=== PATIENT | female | born 1980 | race Caucasian/White ===

== ENCOUNTER 2016-03-29 14:22 | Emergency (ER) | payer OTHER ==
[~2016-03-29] VITALS: Ht 165.1 cm; Wt 103.1 kg
[~2016-03-29 14:22] MED LIST: AEROECLIPSE1 EACH MC; ALBUTEROL SULF8.5 GM IH; ALBUTEROL17 GM IH; ALBUTEROL2.5 MG/3 M; ALBUTEROL2.5 MG/3 M IH; AMOXICILLIN500 MG PO; AUGMENTIN875 MG PO; BACTRIM,SEPT1 TABLET PO; BUSPAR5 MG PO; CLONIDINE HCL0.1 MG PO; CYMBALTA30 MG; CYMBALTA30 MG PO; IBUPROFEN800 MG; KLOR-CON 1010 ME1 PO; LEVAQUIN750 MG PO; METHADONE10 MG PO; MOTRIN IB200 MG PO; MUCINEX D ER T1 EACH PO; NASONEB NASAL1 EACH MC; NOHOMEMEDS; PERCOCET 5/31 TABLET PO; PREDNISONE20 MG PO; PREDNISONE50 MG PO; PROVENTIL,2.5 MG/0.5 IH; PROVENTIL,2.5 MG/3 M IH; SEROQUEL100 MG PO; TYLENOL WITH C1 EACH PO; ULTRAM50 MG PO; VALIUM5 MG PO; VENTOLIN HFA18 GM IH; VYVANSE30 MG; VYVANSE40 MG; VYVANSE70 MG PO; ZITHROMAX Z-PA250 MG PO
[2016-03-29 16:23] LABS: MCH 26.7 PG (29.0-34.0); MCHC 31.4 G/DL (30.0-36.0); MEAN PLAT.VOLUME 9.4 uM^3 (9.5-12.4); PLATELET COUNT 548 K/uL (156-360); RBC DIS.WIDTH-CV 14.3 % (11.8-14.6); RBC DIS.WIDTH-SD 43.6 % (39-53); RED BLOOD COUNT 5.06 M/uL (3.80-5.20); WHITE BLOOD COUNT 15.8 K/uL (4.1-10.2)
[2016-03-29 16:31] LABS: CHLORIDE 111 mEq/L (99-109); POTASSIUM 4.6 mEq/L (3.7-5.4); SODIUM 143 mEq/L (136-147)
[2016-03-29 16:33] LABS: GLUCOSE 79 mg/dL (70-99)
[2016-03-29 16:34] LABS: ANION GAP 10 MEQ/L (2-14)
[2016-03-29 16:36] LABS: SERUM ETHYL ALCOHOL < 10 mg/dL
[2016-03-29 16:37] LABS: GFR ESTIMATE (CALCULATED) 45 mL/min/
[2016-03-29 16:39] LABS: UREA NITROGEN (BUN) 16 mg/dL (9-23)
[2016-03-29 16:40] LABS: SALICYLATE < 5.0 MG/DL (15-30)
[2016-03-29 16:46] LABS: QUANTITATIVE HCG < 4.0 MIU/ML
[2016-03-29 20:18] VITALS: BP 128/77
== END 2016-03-29 20:19 | disposition home or self-care (01) ==
LOC: EME 14:22
PROVIDERS: Emergency Medicine
DX: T42.4X1A Poisoning by benzodiazepines, accidental (unintentional), initial encounter (principal); T39.311A Poisoning by propionic acid derivatives, accidental (unintentional), initial encounter; T48.4X1A Poisoning by expectorants, accidental (unintentional), initial encounter; D72.829 Elevated white blood cell count, unspecified; F17.200 Nicotine dependence, unspecified, uncomplicated
CPT/HCPCS: 80048; 81003; 84702; 85027; 93005; 99281; 99285; G0480; J2310

== ENCOUNTER 2016-05-09 13:12 | Emergency (ER) | payer OTHER ==
[~2016-05-09] VITALS: Ht 165.1 cm; Wt 101.1 kg
[2016-05-09 13:13] VITALS: BP 92/51
== END 2016-05-09 15:45 | disposition left against medical advice (07) ==
LOC: EME 13:12
DX: J98.01 Acute bronchospasm (principal); J45.909 Unspecified asthma, uncomplicated; F17.200 Nicotine dependence, unspecified, uncomplicated; F90.9 Attention-deficit hyperactivity disorder, unspecified type; Z86.14 Personal history of Methicillin resistant Staphylococcus aureus infection
CPT/HCPCS: 71020; 87502; 94644; 99281; 99284; J2930

== ENCOUNTER 2016-05-15 16:58 | Inpatient (IN) | payer OTHER ==
[~2016-05-15] VITALS: Ht 165.1 cm; Wt 101.0 kg
[2016-05-15 18:12] LABS: HEMATOCRIT 27.5 % (36.0-46.0); MCH 21.6 PG (29.0-34.0); MCHC 28.4 G/DL (30.0-36.0); MCV 76.2 FL (83-99); MEAN PLAT.VOLUME 9.2 uM^3 (9.5-12.4); PLATELET COUNT 590 K/uL (156-360); RBC DIS.WIDTH-CV 18.8 % (11.8-14.6); RBC DIS.WIDTH-SD 52.3 % (39-53); RED BLOOD COUNT 3.61 M/uL (3.80-5.20)
[2016-05-15 18:25] LABS: CHLORIDE 110 mEq/L (99-109); POTASSIUM 3.4 mEq/L (3.7-5.4); SODIUM 141 mEq/L (136-147)
[2016-05-15 18:27] LABS: GLUCOSE 100 mg/dL (70-99)
[2016-05-15 18:28] LABS: ANION GAP 7 MEQ/L (2-14)
[2016-05-15 18:30] LABS: SERUM ETHYL ALCOHOL < 10 mg/dL
[2016-05-15 18:31] LABS: GFR ESTIMATE (CALCULATED) > 59 mL/min/
[2016-05-15 18:40] LABS: UREA NITROGEN (BUN) 13 mg/dL (9-23)
[2016-05-15 18:42] LABS: QUANTITATIVE HCG < 4.0 MIU/ML
[2016-05-15 21:14] LABS: LACTATE DEHYDROGENASE 467 IU/L (20-246)
[2016-05-15 23:50] LABS: IMM.RETIC FRACTION 32.2 % (3-19); RETIC HGB EQUIVALENT 18.6 (28-36); RETICULOCYTE COUNT 2.9 % (0.5-1.8)
[2016-05-16] VITALS (9 sets, daily range): BP systolic 122–164; BP diastolic 60–86
[2016-05-16 00:08] LABS: ERTH.SED.RATE 37 MM/HR (0-20)
[2016-05-16 00:48] LABS: ADD MIUA? YES; BILIRUBIN NEGATIVE; BLOOD NEGATIVE; COLOR YELLOW ((YELLOW)); GLUCOSE (STRIP) NEGATIVE; KETONES NEGATIVE; LEUKOCYTES NEGATIVE; NITRITE NEGATIVE; PROTEIN (STRIP) 30; UROBILINOGEN 0.2 MG/DL (0.2-1.0)
[2016-05-16 00:54] LABS: BACTERIA RARE /HPF; EPITHELIAL CELLS RARE /HPF; MUCUS TRACE /LPF; RED BLOOD CELLS 0-5 /HPF (0-5); UCUL ADDED? NO
[2016-05-16 01:01] LABS: THC CANNABINOIDS PRESUMPTIVE POSITIVE (50 ng/mL)
[2016-05-16 01:02] LABS: AMPHETAMINE PRESUMPTIVE POSITIVE (500 ng/mL); BARBITURATES NEGATIVE (200 ng/mL); BENZODIAZEPINES NEGATIVE (150 ng/mL); COCAINE PRESUMPTIVE POSITIVE (150 ng/mL); INTERNAL CONTROLS VALID? YES; METHADONE PRESUMPTIVE POSITIVE (200 ng/mL); METHAMPHETAMINE NEGATIVE (500 ng/mL); OPIATES (MORPHINE) PRESUMPTIVE POSITIVE (100 ng/mL); OXYCODONE NEGATIVE (100 ng/mL); PHENCYCLIDINE NEGATIVE (25 ng/mL); PROPOXYPHENE NEGATIVE (300 ng/mL); TRICYCLIC ANTIDEPRESSANTS NEGATIVE (300 ng/mL)
[2016-05-16 01:03] LABS: ADD MEDTOX COMMENT Y
[2016-05-16 01:13] LABS: C-REACTIVE PROTEIN 11.8 MG/L (0-10); IRON 13 MCG/DL (35-150); SAMPLE HEMOLYSIS CHECK 0; SAMPLE ICTERIC CHECK 0; SAMPLE LIPEMIA CHECK 0
[2016-05-16 04:55] LABS: CHLORIDE 111 mEq/L (99-109); POTASSIUM 3.3 mEq/L (3.7-5.4); SODIUM 139 mEq/L (136-147)
[2016-05-16 04:56] LABS: GLUCOSE 102 mg/dL (70-99)
[2016-05-16 04:58] LABS: ANION GAP 8 MEQ/L (2-14)
[2016-05-16 05:00] LABS: GFR ESTIMATE (CALCULATED) > 59 mL/min/
[2016-05-16 05:01] LABS: EOSINOPHIL (%) 3.8 % (0-5); EOSINOPHIL COUNT 0.4 K/uL (0-0.3); HEMATOCRIT 27.2 % (36.0-46.0); IMMATURE GRANULOCYTE (%) 0.4 % (0.0-0.7); INSTRUMENT ABS NEUTROPHIL CT 7.5 K/uL; LYMPHOCYTE COUNT 2.7 K/uL (1.0-2.8); MCH 21.2 PG (29.0-34.0); MCHC 27.9 G/DL (30.0-36.0); MEAN PLAT.VOLUME 9.9 uM^3 (9.5-12.4); MONOCYTE (%) 5.6 % (3-12); MONOCYTE COUNT 0.6 K/uL (0-0.8); NEUTROPHIL (%) 65.8 % (45-76); NEUTROPHIL COUNT 7.5 K/uL (1.8-6.4); PLATELET COUNT 484 K/uL (156-360); RBC DIS.WIDTH-CV 19.3 % (11.8-14.6); RED BLOOD COUNT 3.58 M/uL (3.80-5.20); UREA NITROGEN (BUN) 12 mg/dL (9-23); WHITE BLOOD COUNT 11.3 K/uL (4.1-10.2)
[2016-05-16 07:24] LABS: PLAT.SUFFICIENCY INCREASED
[2016-05-17] VITALS: BP 129/62
[2016-05-17 09:15] VITALS: BP 140/76
[2016-05-17 12:37] LABS: HEMATOCRIT 31.6 % (36.0-46.0); MCH 22.6 PG (29.0-34.0); MCHC 29.4 G/DL (30.0-36.0); MCV 76.9 FL (83-99); RBC DIS.WIDTH-CV 19.6 % (11.8-14.6); RBC DIS.WIDTH-SD 54.5 % (39-53); RED BLOOD COUNT 4.11 M/uL (3.80-5.20)
[2016-05-17 12:39] LABS: WHITE BLOOD COUNT 6.3 K/uL (4.1-10.2)
[2016-05-17 12:45] LABS: ANION GAP 6 MEQ/L (2-14); CHLORIDE 108 MEQ/L (99-109); GFR ESTIMATE (CALCULATED) > 59 mL/min/; GLUCOSE 106 mg/dL (70-99); SAMPLE HEMOLYSIS CHECK 1; SAMPLE ICTERIC CHECK 0; SAMPLE LIPEMIA CHECK 0; SODIUM 139 MEQ/L (136-147); UREA NITROGEN (BUN) 8 mg/dL (9-23)
[2016-05-17 12:56] LABS: HPCA INDEX 3.58
[2016-05-17 14:13] LABS: IMM.PLATELET FRACTION 9.4 (1-7); PLATELET CLUMPS PRESENT - PLATELET COUNT APPEARS ADQ.
[2016-05-17 14:14] LABS: PLATELET COUNT UNABLE TO REPORT K/uL (156-360)
[2016-05-17 15:58] VITALS: BP 134/64
[2016-05-18] VITALS: BP 129/70
[2016-05-18 07:53] VITALS: BP 125/66
[2016-05-18 11:20] VITALS: BP 148/68
[2016-05-18 14:03] LABS: HEMATOCRIT 28.5 % (36.0-46.0); MCV 78.5 FL (83-99)
[2016-05-18 16:18] VITALS: BP 128/69
[2016-05-18 23:34] VITALS: BP 120/60
[2016-05-19 07:58] LABS: HEMATOCRIT 30.3 % (36.0-46.0); MCH 22.8 PG (29.0-34.0); MCHC 28.7 G/DL (30.0-36.0); MCV 79.3 FL (83-99); RBC DIS.WIDTH-CV 20.9 % (11.8-14.6); RBC DIS.WIDTH-SD 58.2 % (39-53); RED BLOOD COUNT 3.82 M/uL (3.80-5.20); WHITE BLOOD COUNT 7.2 K/uL (4.1-10.2)
[2016-05-19 08:00] VITALS: BP 132/77
[2016-05-19 08:34] LABS: ANION GAP 7 MEQ/L (2-14); CHLORIDE 109 MEQ/L (99-109); GFR ESTIMATE (CALCULATED) > 59 mL/min/; GLUCOSE 76 mg/dL (70-99); POTASSIUM 4.1 MEQ/L (3.7-5.4); SAMPLE HEMOLYSIS CHECK 0; SAMPLE ICTERIC CHECK 0; SAMPLE LIPEMIA CHECK 0; SODIUM 145 MEQ/L (136-147); UREA NITROGEN (BUN) 8 mg/dL (9-23)
[2016-05-19 08:42] LABS: PLATELET COUNT 442 K/uL (156-360)
[2016-05-19 10:25] LABS: HCV RNA (IU/mL) <15 IU/mL (<15)
[2016-05-19 14:51] VITALS: BP 130/85
[2016-05-19 23:29] VITALS: BP 110/55
[2016-05-20 07:19] LABS: HEMATOCRIT 29.2 % (36.0-46.0); MCH 22.7 PG (29.0-34.0); MCHC 28.1 G/DL (30.0-36.0); MCV 80.9 FL (83-99); MEAN PLAT.VOLUME 9.5 uM^3 (9.5-12.4); PLATELET COUNT 439 K/uL (156-360); RBC DIS.WIDTH-CV 22.2 % (11.8-14.6); RBC DIS.WIDTH-SD 61.6 % (39-53); RED BLOOD COUNT 3.61 M/uL (3.80-5.20); WHITE BLOOD COUNT 7.4 K/uL (4.1-10.2)
[2016-05-20 07:39] VITALS: BP 118/56
[2016-05-20] MEDS ORDERED: AMOX TR-K CLV1 EAC4 PO (10:17)
[2016-05-20] MEDS ORDERED: ANUSOL-HC21 GM PR (10:56)
[2016-05-20] MEDS ORDERED: IRON325 M1 PO (12:55)
[2016-05-20] MEDS ORDERED: PEN-VEE K,VEET500 MG PO ×2 (13:37→13:38)
[2016-05-23 09:45] LABS: HCV RNA (LOG IU/mL) <1.18 (<1.18)
== END 2016-05-20 14:22 | disposition home or self-care (01) | DRG 603 ==
LOC: EME 16:58 → EDOF 22:42 → 5SOUTH 22:42 → EDOF 22:42 → 5SOUTH 05-16 00:01
PROVIDERS: Emergency Medicine; Hospitalist; Internal Medicine; Internal Medicine Gastroenterology; Nurse Practitioner Adult Health
PROC: 05HM33Z Insertion of Infusion Device into Right Internal Jugular Vein, Percutaneous Approach (ICD-10-PCS; principal; 2016-05-16)
PROC: 30233N1 Transfusion of Nonautologous Red Blood Cells into Peripheral Vein, Percutaneous Approach (ICD-10-PCS; 2016-05-16)
PROC: 0DJD8ZZ Inspection of Lower Intestinal Tract, Via Natural or Artificial Opening Endoscopic (ICD-10-PCS; 2016-05-19)
DX: L03.211 Cellulitis of face (principal); K92.2 Gastrointestinal hemorrhage, unspecified; N39.0 Urinary tract infection, site not specified; F31.89 Other bipolar disorder; K04.7 Periapical abscess without sinus; F11.10 Opioid abuse, uncomplicated; K64.8 Other hemorrhoids; K64.4 Residual hemorrhoidal skin tags; D50.0 Iron deficiency anemia secondary to blood loss (chronic); F14.10 Cocaine abuse, uncomplicated; F43.10 Post-traumatic stress disorder, unspecified; J45.909 Unspecified asthma, uncomplicated; M27.2 Inflammatory conditions of jaws; F60.3 Borderline personality disorder; F41.9 Anxiety disorder, unspecified; J32.0 Chronic maxillary sinusitis; F17.210 Nicotine dependence, cigarettes, uncomplicated; E66.9 Obesity, unspecified; Z68.37 Body mass index [BMI] 37.0-37.9, adult; B96.20 Unspecified Escherichia coli [E. coli] as the cause of diseases classified elsewhere; Z59.0 Homelessness; Z86.14 Personal history of Methicillin resistant Staphylococcus aureus infection
CPT/HCPCS: 70487; 71010; 71020; 71250; 80048; 80069; 80202; 81003; 82272; 83540; 83615; 83735; 84466; 84702; 84999; 85014; 85018; 85025; 85027; 85045; 85651; 86140; 86803; 86850; 86900; 86901; 86920; 87040; 87077; 87086; 87186; 87522 90; 90832; 94640; 99281; 99285; G0480; J0295; J1630; J1650; J1756; J1885; J2543; J3370; J7050; J7120; P9016

== ENCOUNTER 2016-06-04 01:35 | Inpatient (IN) | payer OTHER ==
[~2016-06-04] VITALS: Ht 165.1 cm; Wt 96.0 kg
[~2016-06-04 01:35] MED LIST changes: +AMOX TR-K CLV1 EAC4 PO; +ANUSOL-HC21 GM PR; +IRON325 M1 PO; +PEN-VEE K,VEET500 MG PO
[2016-06-04 02:51] LABS: HEMATOCRIT 36.2 % (36.0-46.0); MCH 24.4 PG (29.0-34.0); MCHC 30.7 G/DL (30.0-36.0); MCV 79.7 FL (83-99); MEAN PLAT.VOLUME 9.7 uM^3 (9.5-12.4); PLATELET COUNT 330 K/uL (156-360); RBC DIS.WIDTH-CV 24.4 % (11.8-14.6); RBC DIS.WIDTH-SD 70.3 % (39-53); WHITE BLOOD COUNT 9.4 K/uL (4.1-10.2)
[2016-06-04 02:52] LABS: RED BLOOD COUNT 4.54 M/uL (3.80-5.20)
[2016-06-04 03:05] LABS: CHLORIDE 104 mEq/L (99-109); POTASSIUM 3.1 mEq/L (3.7-5.4); SODIUM 142 mEq/L (136-147)
[2016-06-04 03:07] LABS: GLUCOSE 102 mg/dL (70-99)
[2016-06-04 03:08] LABS: ANION GAP 12 MEQ/L (2-14)
[2016-06-04 03:10] LABS: SERUM ETHYL ALCOHOL < 10 mg/dL
[2016-06-04 03:11] LABS: GFR ESTIMATE (CALCULATED) > 59 mL/min/; UREA NITROGEN (BUN) 9 mg/dL (9-23)
[2016-06-04 03:19] LABS: QUANTITATIVE HCG < 4.0 MIU/ML
[2016-06-04 06:46] LABS: ADD MIUA? YES; BILIRUBIN NEGATIVE; BLOOD NEGATIVE; COLOR AMBER ((YELLOW)); GLUCOSE (STRIP) NEGATIVE; KETONES NEGATIVE; LEUKOCYTES SMALL; NITRITE NEGATIVE; PROTEIN (STRIP) 30; SPECIFIC GRAVITY 1.017 (1.000-1.030)
[2016-06-04 06:53] LABS: AMPHETAMINE PRESUMPTIVE POSITIVE (500 ng/mL); BARBITURATES NEGATIVE (200 ng/mL); BENZODIAZEPINES PRESUMPTIVE POSITIVE (150 ng/mL); COCAINE PRESUMPTIVE POSITIVE (150 ng/mL); INTERNAL CONTROLS VALID? YES; METHADONE PRESUMPTIVE POSITIVE (200 ng/mL); METHAMPHETAMINE PRESUMPTIVE POSITIVE (500 ng/mL); OPIATES (MORPHINE) PRESUMPTIVE POSITIVE (100 ng/mL); OXYCODONE NEGATIVE (100 ng/mL); PHENCYCLIDINE NEGATIVE (25 ng/mL); PROPOXYPHENE NEGATIVE (300 ng/mL); THC CANNABINOIDS PRESUMPTIVE POSITIVE (50 ng/mL); TRICYCLIC ANTIDEPRESSANTS NEGATIVE (300 ng/mL)
[2016-06-04 06:54] LABS: ADD MEDTOX COMMENT Y
[2016-06-04 07:03] LABS: BACTERIA 3+ /HPF; CASTS NONE SEEN /LPF; CRYSTALS NONE SEEN; EPITHELIAL CELLS 4+ /HPF; MUCUS NONE SEEN /LPF; RED BLOOD CELLS 0-5 /HPF (0-5); UCUL ADDED? NO; WHITE BLOOD CELLS 0-5 /HPF (0-5)
[2016-06-04 07:25] LABS: BENZODIAZEPINES, URINE SCREEN POSITIVE (200 ng/mL)
[2016-06-04 13:06] VITALS: BP 141/62
[2016-06-04] MEDS ORDERED: BUSPAR5 MG PO (13:57)
[2016-06-04] MEDS ORDERED: VENTOLIN HFA18 GM IH (13:58)
[2016-06-04 15:19] VITALS: BP 141/62
[2016-06-04 15:32] VITALS: BP 133/65
[2016-06-05 07:53] VITALS: BP 102/58
[2016-06-05 14:11] VITALS: BP 109/62
[2016-06-05 15:35] VITALS: BP 118/56
[2016-06-06 07:53] VITALS: BP 109/79
[2016-06-06 15:56] VITALS: BP 96/54
[2016-06-07 07:58] VITALS: BP 114/55
[2016-06-07 15:40] VITALS: BP 120/60
[2016-06-08 07:43] VITALS: BP 128/79
[2016-06-08] MEDS ORDERED: QUETIAPINE FUM200 MG PO ×2 (09:05→09:07)
[2016-06-08] MEDS ORDERED: QUETIAPINE FUM100 MG PO (09:05)
[2016-06-08] MEDS ORDERED: SEROQUEL300 MG PO (09:11)
== END 2016-06-08 10:10 | disposition other institution (70) | DRG 885 ==
LOC: EME 01:35 → EDOF 10:51 → 1WEST 10:51
PROVIDERS: Emergency Medicine
DX: F33.9 Major depressive disorder, recurrent, unspecified (principal); F41.1 Generalized anxiety disorder; F15.99 Other stimulant use, unspecified with unspecified stimulant-induced disorder; F19.20 Other psychoactive substance dependence, uncomplicated; J45.909 Unspecified asthma, uncomplicated; T40.1X2A Poisoning by heroin, intentional self-harm, initial encounter; R11.0 Nausea; M79.606 Pain in leg, unspecified; F11.10 Opioid abuse, uncomplicated
CPT/HCPCS: 80048; 81003; 84702; 84999; 85027; 94640; 94640 76; 97150 GO; 97165 GO; 99202; 99281; 99285; G0480; Q0169; Q0177

== ENCOUNTER 2016-11-19 19:48 | Emergency (ER) | payer OTHER ==
[~2016-11-19] VITALS: Ht 165.1 cm; Wt 78.3 kg
[~2016-11-19 19:48] MED LIST changes: +QUETIAPINE FUM100 MG PO; +QUETIAPINE FUM200 MG PO; +SEROQUEL300 MG PO
[2016-11-19] MEDS ORDERED: MOTRIN800 MG PO (21:12)
[2016-11-19] MEDS ORDERED: SEROQUEL300 MG PO (21:12)
[2016-11-19] MEDS ORDERED: AMOXICILLIN500 MG PO (21:12)
[2016-11-19] MEDS ORDERED: BUSPAR10 MG PO (21:12)
[2016-11-19 21:37] VITALS: BP 110/68
== END 2016-11-19 21:41 | disposition home or self-care (01) ==
LOC: EXP 19:48 → EME 19:48 → EXP 21:41
DX: K04.7 Periapical abscess without sinus (principal); Z76.0 Encounter for issue of repeat prescription; F41.9 Anxiety disorder, unspecified; F17.200 Nicotine dependence, unspecified, uncomplicated
CPT/HCPCS: 99281; 99283

== ENCOUNTER 2016-11-25 14:21 | Emergency (ER) | payer OTHER ==
[~2016-11-25] VITALS: Ht 165.1 cm; Wt 80.7 kg
[~2016-11-25 14:21] MED LIST changes: +BUSPAR10 MG PO; +MOTRIN800 MG PO
[2016-11-25 16:23] VITALS: BP 128/94
[2016-11-25] MEDS ORDERED: BUSPAR10 MG PO (17:14)
[2016-11-25] MEDS ORDERED: QUETIAPINE FUM300 MG PO (17:14)
== END 2016-11-25 16:25 | disposition home or self-care (01) ==
LOC: EME 14:21
DX: Z76.0 Encounter for issue of repeat prescription (principal); R42 Dizziness and giddiness; F11.20 Opioid dependence, uncomplicated; J45.909 Unspecified asthma, uncomplicated; F43.10 Post-traumatic stress disorder, unspecified; F60.3 Borderline personality disorder; F31.9 Bipolar disorder, unspecified; F17.200 Nicotine dependence, unspecified, uncomplicated; Z86.14 Personal history of Methicillin resistant Staphylococcus aureus infection
CPT/HCPCS: 99281; 99284